=== PATIENT | male | born 1965 | race Caucasian/White ===

== ENCOUNTER → 2016-09-05 | Outpatient (CLI) | payer BC ==
[2016-09-05 09:15] LABS: Basophils # (A) 0.1 k/uL (0-0.2); Basophils % (A) 1 %; CH 32.1; CHCM 33.4; Eosinophils # (A) 0.1 k/uL (0-0.7); Eosinophils % (A) 2 %; HCT 47.1 % (39.0-53.0); HDW 2.37; Luc % (Auto) 2; Lymphocytes # (A) 0.6 k/uL (1.0-4.8); Lymphocytes % (A) 15 %; MCH 30.8 pg (25.0-35.0); MCHC 31.8 g/dL (31.0-37.0); MCV 96.6 fL (80.0-100.0); Mean Platelet Volume 8.3; Monocytes # (A) 0.3 k/uL (0-1.0); Monocytes % (A) 7 %; Neutrophils # (A) 3.1 k/uL (1.3-7.7); Neutrophils % (A) 73 %; RBC 4.87 m/uL (4.30-5.90); RDW 12.1 % (11.5-15.5); WBC 4.3 k/uL (3.8-10.6); WBC (Perox) 4.62
[2016-09-05 11:12] LABS: Hemoglobin A1C 6.7 % (4.2-6.1)
[2016-09-05 11:24] LABS: ALT 40 U/L (21-72); AST 21 U/L (17-59); Anion Gap 11 mmol/L; Blood Urea Nitrogen 18 mg/dL (9-20); Calcium 9.8 mg/dL (8.4-10.2); Carbon Dioxide 30 mmol/L (22-30); Chloride 100 mmol/L (98-107); Glucose 211 mg/dL (74-99); Non-African American GFR(MDRD) >60 (>60 ml/min/1.73 sqM); Potassium 4.7 mmol/L (3.5-5.1); Sodium 141 mmol/L (137-145)
[2016-09-05 11:51] LABS: Prostate Specific Antigen 0.41 ng/mL (0.00-4.00)
== END | disposition home or self-care (01) ==
LOC: LABWHC1 07:00
PROVIDERS: ATTEND Family Medicine
DX: E11.9 Type 2 diabetes mellitus without complications (principal)
CPT/HCPCS: 36415; 80048; 83036; 84153; 84450; 84460; 85025

== ENCOUNTER → 2017-08-16 | Outpatient (CLI) | payer BC ==
[2017-08-16 07:44] LABS: HCT 44.9 % (39.0-53.0); HGB 14.8 gm/dL (13.0-17.5); MCH 31.2 pg (25.0-35.0); MCV 94.6 fL (80.0-100.0); Mean Platelet Volume 8.2; Platelet Count 198 k/uL (150-450); RBC 4.75 m/uL (4.30-5.90); WBC 5.2 k/uL (3.8-10.6)
[2017-08-16 10:03] LABS: ALT 105 U/L (21-72); AST 43 U/L (17-59); Albumin 4.3 g/dL (3.5-5.0); Alkaline Phosphatase 102 U/L (38-126); Anion Gap 10 mmol/L; Blood Urea Nitrogen 20 mg/dL (9-20); Calcium 9.8 mg/dL (8.4-10.2); Carbon Dioxide 29 mmol/L (22-30); Chloride 100 mmol/L (98-107); Cholesterol 154 mg/dL (<200); Glucose 176 mg/dL (74-99); HDL Cholesterol 49 mg/dL (40-60); LDL Cholesterol,Calculated 73 mg/dL (0-99); Potassium 4.6 mmol/L (3.5-5.1); Sodium 139 mmol/L (137-145); Total Bilirubin 0.7 mg/dL (0.2-1.3); Triglycerides 161 mg/dL (<150)
[2017-08-16 10:32] LABS: Prostate Specific Antigen 0.43 ng/mL (0.00-4.00)
[2017-08-16 19:41] LABS: Hemoglobin A1C 7.3 % (4.0-6.0)
== END | disposition home or self-care (01) ==
LOC: LABWHC1 07:03
PROVIDERS: ATTEND Family Medicine
DX: Z00.00 Encounter for general adult medical examination without abnormal findings (principal); E11.9 Type 2 diabetes mellitus without complications
CPT/HCPCS: 36415; 80053; 80061; 82043; 82570; 83036; 84153; 85027; 86803

== ENCOUNTER → 2017-08-28 | Outpatient (CLI) | payer BC ==
[2017-08-28 08:17] LABS: ALT 46 U/L (21-72); AST 27 U/L (17-59)
== END | disposition home or self-care (01) ==
LOC: LABWHC1 07:10
PROVIDERS: ATTEND Family Medicine
DX: R89.9 Unspecified abnormal finding in specimens from other organs, systems and tissues (principal)
CPT/HCPCS: 36415; 84450; 84460

== ENCOUNTER → 2018-03-22 | Outpatient (CLI) | payer BC ==
[2018-03-22 08:48] LABS: ALT 40 U/L (21-72); AST 25 U/L (17-59); Anion Gap 11 mmol/L; Blood Urea Nitrogen 17 mg/dL (9-20); Calcium 9.5 mg/dL (8.4-10.2); Carbon Dioxide 25 mmol/L (22-30); Chloride 102 mmol/L (98-107); Glucose 199 mg/dL (74-99); Potassium 4.7 mmol/L (3.5-5.1); Sodium 138 mmol/L (137-145)
[2018-03-22 18:09] LABS: Hemoglobin A1C 6.9 % (4.0-6.0)
== END | disposition home or self-care (01) ==
LOC: LABWHC1 08:11
PROVIDERS: ATTEND Family Medicine
DX: E78.2 Mixed hyperlipidemia (principal); E11.65 Type 2 diabetes mellitus with hyperglycemia
CPT/HCPCS: 36415; 80048; 83036; 84450; 84460

== ENCOUNTER → 2019-05-11 | Outpatient (CLI) | payer BC ==
[2019-05-11 10:29] LABS: Basophils # (A) 0.1 k/uL (0-0.2); Basophils % (A) 1 %; Eosinophils # (A) 0.1 k/uL (0-0.7); Eosinophils % (A) 2 %; HCT 44.8 % (39.0-53.0); HGB 15.2 gm/dL (13.0-17.5); Lymphocytes # (A) 0.7 k/uL (1.0-4.8); Lymphocytes % (A) 14 %; MCH 32.7 pg (25.0-35.0); MCV 96.1 fL (80.0-100.0); Mean Platelet Volume 7.4; Monocytes # (A) 0.4 k/uL (0-1.0); Monocytes % (A) 7 %; Neutrophils % (A) 73 %; Platelet Count 234 k/uL (150-450); RBC 4.66 m/uL (4.30-5.90); WBC 5.4 k/uL (3.8-10.6)
[2019-05-11 16:53] LABS: African American GFR (CKD) 111.8 (60.0-200.0); Anion Gap 7.3 mmol/L (4.00-12.00); BUN/Creat Ratio 17.78 Ratio (12.00-20.00); Calcium 9.5 mg/dL (8.7-10.3); Carbon Dioxide 28.7 mmol/L (21.6-31.8); Potassium 4.6 mmol/L (3.5-5.5)
[2019-05-11 17:47] LABS: Hemoglobin A1C 7.3 % (4.0-6.0)
== END | disposition home or self-care (01) ==
LOC: LABWHC1 08:43
PROVIDERS: ATTEND Family Medicine
DX: E78.5 Hyperlipidemia, unspecified (principal); E11.9 Type 2 diabetes mellitus without complications; R80.9 Proteinuria, unspecified
CPT/HCPCS: 36415; 80048; 82043; 82570; 83036; 84450; 84460; 85025

== ENCOUNTER → 2019-06-10 | Outpatient (CLI) | payer BC ==
[2019-06-10 12:23] LABS: Albumin 4.4 g/dL (3.80-4.90); Albumin/Globulin Ratio 2.32 (1.60-3.17); Bilirubin, Conjugated 0.2 mg/dL (0.20-0.40); Bilirubin,Unconjugated 0.4 mg/dL; Globulin 1.9 g/dL (1.6-3.3); Total Bilirubin 0.6 mg/dL (0.3-1.2); Total Protein 6.3 g/dL (6.2-8.2)
== END | disposition home or self-care (01) ==
LOC: LABWHC1 07:09
PROVIDERS: ATTEND Family Medicine
DX: R94.5 Abnormal results of liver function studies (principal)
CPT/HCPCS: 36415; 80076; 82977

== ENCOUNTER → 2019-08-14 | Outpatient (CLI) | payer BC ==
[2019-08-14 11:14] LABS: Albumin 4.7 g/dL (3.80-4.90); Albumin/Globulin Ratio 2.35 (1.60-3.17); Bilirubin, Conjugated 0.2 mg/dL (0.20-0.40); Bilirubin,Unconjugated 0.4 mg/dL; Chol/HDL Ratio 4.48; LDL Cholesterol,Calculated 133.6 mg/dL (0.0-131.0); Total Bilirubin 0.6 mg/dL (0.3-1.2); Total Protein 6.7 g/dL (6.2-8.2); VLDL Calculation 19.4 mg/dL (5.00-40.00)
[2019-08-14 15:39] LABS: Hemoglobin A1C 6.6 % (4.0-6.0)
== END | disposition home or self-care (01) ==
LOC: LABWHC1 07:04
PROVIDERS: ATTEND Family Medicine
DX: R94.5 Abnormal results of liver function studies (principal); E11.9 Type 2 diabetes mellitus without complications; E78.5 Hyperlipidemia, unspecified; Z12.5 Encounter for screening for malignant neoplasm of prostate
CPT/HCPCS: 36415; 80061; 80076; 82977; 83036

== ENCOUNTER 2019-09-02 19:00 | Emergency (ER) | payer BC ==
[2019-09-02 19:07] VITALS: BP 189/96; PULSE 78; RESP 18; TEMP 98.6
--- NOTE | 2019-09-02 19:32 | ED ---
Head Injury HPI - General Chief complaint: Head Injury Stated complaint: syncope/chin lac Time Seen by Provider: 09/02/19 19:08 Source: patient Mode of arrival: ambulatory Limitations: no limitations - History of Present Illness Initial comments: Patient is a 53-year-old male presenting to emergency Department with a chief complaint of a head injury. 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 Patient states he woke up on the ground and then walked back to the house. Please states she checked his blood sugar which was normal. States she immediately gave him 2x81 mg of aspirin. States initially he was confused but is gradually improved. States currently patient is at his baseline. Patient denies any blood thinners. Does report a headache on the right side of his head and face. Patient does report a small abrasion on the right side of his chin. Denies any blurry vision, lightheadedness, dizziness, one-sided weakness or paresthesias. Denies any chest pain shortness of breath back pain abdominal pain or extremity pain. - Related Data Home Medications Medication Instructions Recorded Confirmed Cholesterol Med 1 tab PO DAILY 05/02/17 05/03/17 metFORMIN HCL [Glucophage] 500 mg PO BID 05/02/17 05/03/17 Previous Rx's Medication Instructions Recorded Omeprazole [PriLOSEC] 20 mg PO AC-BRKFST #90 cap 05/03/17 Allergies/Adverse reactions: Allergies Allergy/AdvReac Type Severity Reaction Status Date / Time No Known Allergies Allergy Verified 05/11/19 09:52 Review of Systems ROS Statement: Those systems with pertinent positive or pertinent negative responses have been documented in the HPI. ROS Other: All systems not noted in ROS Statement are negative. Past Medical History Past Medical History: Diabetes Mellitus History of Any Multi-Drug Resistant Organisms: None Reported Past Surgical History: No Surgical Hx Reported Past Anesthesia/Blood Transfusion Reactions: No Reported Reaction Past Psychological History: No Psychological Hx Reported Smoking Status: Never smoker Past Alcohol Use History: Occasional Past Drug Use History: None Reported - Past Family History Mother Family Medical History: Cancer General Exam Limitations: no limitations General appearance: alert, in no apparent distress Head exam: Present: atraumatic (Small abrasion on the right side of chin.), normocephalic, normal inspection. Absent: other (Negative Dawkins sign, negative periorbital ecchymosis, negative hemotympanum.) Eye exam: Present: normal appearance, PERRL, EOMI. Absent: conjunctival injection Pupils: Present: normal accommodation ENT exam: Present: normal exam, normal oropharynx (No oral trauma), mucous membranes moist, TM's normal bilaterally, normal external ear exam Neck exam: Present: normal inspection, full ROM Respiratory exam: Present: normal lung sounds bilaterally. Absent: respiratory distress, wheezes, chest wall tenderness Cardiovascular Exam: Present: regular rate, normal rhythm, normal heart sounds GI/Abdominal exam: Present: soft. Absent: distended, tenderness, guarding Extremities exam: Present: normal inspection, full ROM, normal capillary refill, other (+2 ulnar and radial pulses bilaterally. +2 dorsalis pedis and posterior tibialis bilaterally.). Absent: tenderness, pedal edema, joint swelling Back exam: Present: normal inspection, full ROM. Absent: tenderness Neurological exam: Present: alert, oriented X3, CN II-XII intact, normal gait Psychiatric exam: Present: normal affect, normal mood Skin exam: Present: warm, dry, intact, normal color Course Vital Signs 09/02/19 19:02 Temperature 98.6 F Pulse Rate 78 Respiratory 18 Rate Blood Pressure 189/96 O2 Sat by Pulse 98 Oximetry Medical Decision Making - Medical Decision Making Patient is a 53-year-old male presenting to the emergency department with a chief complaint of a head injury. Patient had a beam fall on his head, particularly on the right side of his face causing loss of consciousness. The incident was not witnessed. Patient states he was unconscious for about 10 minutes maximum. Patient more [facility] where his obtained his blood sugar was within normal limits. Patient did have some initial confusion which gradually resolved. On initial evaluation, patient have a c-collar. patient did appear to have a mild abrasion on the right side of the chin. Patient did not have any other signs of obvious signs of trauma on the head. He did report some tenderness to palpation on the right frontotemporal region all the way down to the angle of the mandible. Patient is not on blood thinners. CT of head and neck is unremarkable. C-collar was cleared. Patient neurovascularly intact. Patient is able to ambulate without any difficulties. The and son state the patient is acting at his baseline currently. I suspect the patient suffered a concussion. Patient advised to have physical and mental rest for next few days. Patient does have any complaints at this time. Return parameters were thoroughly discussed the patient was under setting agreeable. Case discussed with physician. Disposition Clinical Impression: Head injury due to trauma, Concussion with loss of consciousness Disposition: HOME SELF-CARE Condition: Stable Instructions (If sedation given, give patient instructions): Concussion (ED) Additional Instructions: Alternate between Tylenol and Motrin for pain control. Return to emergency department if symptoms worsen. Follow-up with primary care. Is patient prescribed a controlled substance at d/c from ED?: No Referrals: Ruel Brambila DO [Primary Care Provider] - 1-2 days Time of Disposition: 20:28
--- NOTE | 2019-09-02 19:48 | CT ---
EXAMINATION TYPE: CT brain cspine wo con DATE OF EXAM: 09/02/2019 COMPARISON: None HISTORY: Syncope. Head injury. Neck pain CT DLP: 1727 mGycm Automated exposure control for dose reduction was used. Ventricles have normal size. There is no mass effect nor midline shift. There is no sign of intracran ial hemorrhage. The calvarium is intact. There is no evidence of cerebral edema. Sella turcica appear s normal. Cervical vertebra have normal alignment. Disc spaces are normal. Posterior elements are intact. Skull base is intact. There is no evidence for fracture. There is normal spondylotic changes and spur form ation in the mid and lower cervical spine. IMPRESSION: Minor degenerative changes in the cervical spine. No fracture. Negative CT scan of the brain. Small mucus retention cyst noted in the maxillary sinuses.
== END 2019-09-02 20:37 | disposition home or self-care (01) ==
LOC: EC 19:00
DX: S06.0X1A Concussion with loss of consciousness of 30 minutes or less, initial encounter (principal); S00.81XA Abrasion of other part of head, initial encounter; E11.9 Type 2 diabetes mellitus without complications; Z79.84 Long term (current) use of oral hypoglycemic drugs; Z79.899 Other long term (current) drug therapy; W20.8XXA Other cause of strike by thrown, projected or falling object, initial encounter; Y93.89 Activity, other specified
CPT/HCPCS: 70450; 72125; 99284

== ENCOUNTER → 2019-12-21 | Outpatient (CLI) | payer BC ==
[2019-12-21 08:36] LABS: Appearance,Urine Clear (Clear); Bilirubin,Urine Negative (Negative); Color,Urine Yellow; Glucose,Urine (UA) Negative (Negative); Ketones,Urine Negative (Negative); Protein,Urine Negative (Negative)
[2019-12-21 08:37] LABS: Blood,Urine Negative (Negative); Leukocyte Esterase,Urine Negative (Negative); Nitrite,Urine Negative (Negative); Urobilinogen,Urine <2.0 mg/dL (<2.0)
[2019-12-21 11:54] LABS: Chol/HDL Ratio 4.21; LDL Cholesterol,Calculated 108.8 mg/dL (0.0-131.0); VLDL Calculation 26.2 mg/dL (5.00-40.00)
[2019-12-21 13:35] LABS: Hemoglobin A1C 6.6 % (4.0-6.0)
== END | disposition home or self-care (01) ==
LOC: LABWHC1 07:38
PROVIDERS: ATTEND Family Medicine
DX: Z00.00 Encounter for general adult medical examination without abnormal findings (principal); E78.5 Hyperlipidemia, unspecified; R74.8 Abnormal levels of other serum enzymes
CPT/HCPCS: 36415; 80061; 81003; 82977; 83036; 84153

== ENCOUNTER → 2020-01-18 | Outpatient (CLI) | payer BC ==
--- NOTE | 2020-01-18 11:53 | US ---
EXAMINATION TYPE: US abdomen limited DATE OF EXAM: 01/18/2020 COMPARISON: NONE CLINICAL HISTORY: R94.5 ABN LIVER FUNCTION STUDIES. Abnormal labs. No pain. EXAM MEASUREMENTS: Liver Length: 17.0 cm Gallbladder Wall: 0.3 cm CBD: 0.4 cm Right Kidney: 11.6 x 5.9 x 6.1 cm Pancreas: Tail obscured by overlying bowel gas Liver: wnl Gallbladder: wnl Evidence for sonographic Kate's sign: neg CBD: wnl Right Kidney: Two cystic appearing lesions visualized. 1- lateral mid anterior with septation = 2.0 x 2.0 x 2.7 cm. 2- lower pole lateral = 1.9 x 1.8 x 2.4 cm. IMPRESSION: Exam somewhat limited. Cystic lesions right kidney appear to show septation in the latera l lesion, follow-up to assess for stability
== END | disposition home or self-care (01) ==
LOC: RADUSWWP 07:31
PROVIDERS: ATTEND Family Medicine
DX: R94.5 Abnormal results of liver function studies (principal)
CPT/HCPCS: 76705

== ENCOUNTER → 2020-06-23 | Outpatient (CLI) | payer BC ==
[2020-06-23 10:50] LABS: African American GFR (CKD) 97.8 (60.0-200.0); Anion Gap 4.8 mmol/L (4.00-12.00); Calcium 9.3 mg/dL (8.7-10.3); Carbon Dioxide 29.2 mmol/L (21.6-31.8); Non-African American GFR(CKD) 84.4 (60.0-200.0); Potassium 4.3 mmol/L (3.5-5.5)
== END | disposition home or self-care (01) ==
LOC: LABWHC1 07:50
PROVIDERS: ATTEND Family Medicine
DX: E11.9 Type 2 diabetes mellitus without complications (principal); R94.5 Abnormal results of liver function studies
CPT/HCPCS: 36415; 80048; 84450; 84460

== ENCOUNTER → 2020-07-18 | Outpatient (CLI) | payer BC ==
[2020-07-18 07:41] LABS: HCT 43.4 % (39.0-53.0); HGB 14.7 gm/dL (13.0-17.5); MCH 32.3 pg (25.0-35.0); Mean Platelet Volume 8.8; Platelet Count 208 k/uL (150-450); RBC 4.56 m/uL (4.30-5.90); RDW 11.9 % (11.5-15.5); WBC 4.2 k/uL (3.8-10.6)
[2020-07-18 08:09] LABS: Appearance,Urine Clear (Clear); Bilirubin,Urine Negative (Negative); Blood,Urine Negative (Negative); Color,Urine Yellow; Glucose,Urine (UA) Negative (Negative); Ketones,Urine Negative (Negative); Leukocyte Esterase,Urine Negative (Negative); Nitrite,Urine Negative (Negative); PH, Urine 5.5 (5.0-8.0); Protein,Urine Negative (Negative); Specific Gravity,Urine 1.024 (1.001-1.035); Urobilinogen,Urine <2.0 mg/dL (<2.0)
[2020-07-18 11:17] LABS: African American GFR (CKD) 87.1 (60.0-200.0); Albumin 4.6 g/dL (3.80-4.90); Albumin/Globulin Ratio 2.3 (1.60-3.17); Calcium 9.4 mg/dL (8.7-10.3); Chol/HDL Ratio 3.91; Non-African American GFR(CKD) 75.2 (60.0-200.0); Potassium 4.4 mmol/L (3.5-5.5); Prostate Specific Antigen 0.4 ng/mL (0.0-3.5); Total Bilirubin 0.5 mg/dL (0.3-1.2); Total Protein 6.6 g/dL (6.2-8.2)
[2020-07-18 12:52] LABS: Microalbumin Creatinine Ratio <30 mg/g Creat (0-30)
[2020-07-18 14:45] LABS: Hemoglobin A1C 6.8 % (4.0-6.0)
== END | disposition home or self-care (01) ==
LOC: LABWHC1 07:19
PROVIDERS: ATTEND Family Medicine
DX: Z00.00 Encounter for general adult medical examination without abnormal findings (principal); E11.9 Type 2 diabetes mellitus without complications
CPT/HCPCS: 36415; 80053; 80061; 81003; 82043; 82306; 82570; 82977; 83036; 84153; 85027

== ENCOUNTER 2020-11-18 10:57 | Emergency (ER) | payer BC ==
[2020-11-18 11:03] VITALS: RESP 18
[2020-11-18] MEDS ORDERED: SODIUM CHLORIDE 0.9% 1,000 ML IV STA (11:42)
[2020-11-18] MEDS ORDERED: KETOROLAC 15 MG/ML 1 ML VIAL IVP STA ×2 (11:42→12:09)
[2020-11-18] MEDS ORDERED: ONDANSETRON 4 MG/2 ML VIAL IVP STA (11:42)
[2020-11-18 12:12] LABS: Basophils # (A) 0.1 k/uL (0-0.2); Basophils % (A) 1 %; Eosinophils # (A) 0.1 k/uL (0-0.7); Eosinophils % (A) 1 %; HCT 44.2 % (39.0-53.0); HGB 15.3 gm/dL (13.0-17.5); Lymphocytes # (A) 0.6 k/uL (1.0-4.8); Lymphocytes % (A) 6 %; MCH 32.8 pg (25.0-35.0); MCHC 34.6 g/dL (31.0-37.0); MCV 94.9 fL (80.0-100.0); Mean Platelet Volume 8.8; Monocytes # (A) 0.5 k/uL (0-1.0); Monocytes % (A) 5 %; Neutrophils # (A) 8.3 k/uL (1.3-7.7); Neutrophils % (A) 86 %; Platelet Count 216 k/uL (150-450); RBC 4.65 m/uL (4.30-5.90); RDW 11.9 % (11.5-15.5); WBC 9.7 k/uL (3.8-10.6)
[2020-11-18 12:18] LABS: ALT 25 U/L (4-49); AST 24 U/L (17-59); African American GFR (CKD) >90 (>60 ml/min/1.73 sqM); Albumin 4.6 g/dL (3.5-5.0); Alkaline Phosphatase 76 U/L (38-126); Anion Gap 8 mmol/L; Blood Urea Nitrogen 16 mg/dL (9-20); Calcium 9.6 mg/dL (8.4-10.2); Carbon Dioxide 30 mmol/L (22-30); Chloride 103 mmol/L (98-107); Glucose 190 mg/dL (74-99); Non-African American GFR(CKD) 80 (>60 ml/min/1.73 sqM); Potassium 4.4 mmol/L (3.5-5.1); Sodium 141 mmol/L (137-145); Total Bilirubin 0.6 mg/dL (0.2-1.3); Total Protein 7.2 g/dL (6.3-8.2)
[2020-11-18 12:33] LABS: Appearance,Urine Clear (Clear); Bilirubin,Urine Negative (Negative); Blood,Urine Moderate (Negative); Color,Urine Yellow; Glucose,Urine (UA) 1+ (Negative); Ketones,Urine Negative (Negative); Leukocyte Esterase,Urine Negative (Negative); Mucus,Urine Rare /hpf; Nitrite,Urine Negative (Negative); Protein,Urine Trace (Negative); RBC,Urine 10 /hpf (0-5); Specific Gravity,Urine 1.021 (1.001-1.035); Urobilinogen,Urine <2.0 mg/dL (<2.0); WBC,Urine 1 /hpf (0-5)
--- NOTE | 2020-11-18 12:35 | ED ---
General Adult HPI - General Chief complaint: Back Pain/Injury Stated complaint: Back pain/abd pain Time Seen by Provider: 11/18/20 11:30 Source: patient Mode of arrival: ambulatory Limitations: no limitations - History of Present Illness Initial comments: Patient is a 55-year-old male presenting to the emergency Department with complaints of left lower back pain with radiation to the left lower abdominal as well as left testicle that started yesterday. Patient states he noticed a little bit of discomfort yesterday but states today the pain has increased. He did go to a clinic today, they mentioned he had blood in his urine and didn't order an ultrasound however patient states his pain has been increasing and he cannot wait until 1 PM for the ultrasound. He denies history of kidney stones, denies history of diverticulitis. He states that he is nauseous when the pain increases but no vomiting. No fevers or chills, no chest pain or shortness of breath. He admits to a small umbilical hernia, no other abdominal surgeries. He has no further complaints. Upon arrival to the ER, he is slightly hypertensive otherwise vitals are normal. - Related Data Home Medications Medication Instructions Recorded Confirmed metFORMIN HCL [Glucophage] 500 mg PO BID 05/02/17 11/18/20 Previous Rx's Medication Instructions Recorded HYDROcodone/APAP 5-325MG [[place] 1 tab PO Q6HR PRN #8 tab 11/18/20 5-325] Ketorolac [Toradol] 10 mg PO Q8HR #10 tab 11/18/20 Ondansetron Odt [Zofran Odt] 4 mg PO Q8HR PRN #10 tab 11/18/20 Tamsulosin [Flomax] 0.4 mg PO DAILY #7 cap 11/18/20 Allergies Allergy/AdvReac Type Severity Reaction Status Date / Time No Known Allergies Allergy Verified 11/18/20 13:04 Review of Systems ROS Statement: Those systems with pertinent positive or pertinent negative responses have been documented in the HPI. ROS Other: All systems not noted in ROS Statement are negative. Past Medical History Past Medical History: Diabetes Mellitus History of Any Multi-Drug Resistant Organisms: None Reported Past Surgical History: No Surgical Hx Reported Past Anesthesia/Blood Transfusion Reactions: No Reported Reaction Past Psychological History: No Psychological Hx Reported Smoking Status: Never smoker Past Alcohol Use History: Occasional Past Drug Use History: None Reported - Past Family History Mother Family Medical History: Cancer General Exam - General Exam Comments Initial Comments: GENERAL: Patient is well-developed and well-nourished. Patient is nontoxic and in mild distress. HEAD: Atraumatic, normocephalic. EYES: Pupils equal round and reactive to light, extraocular movements intact, sclera anicteric, conjunctiva are normal. Eyelids were unremarkable. ENT: TMs normal, nares patent, oropharynx clear without exudates. Moist mucous membranes. NECK: Normal range of motion, supple without lymphadenopathy or JVD. LUNGS: Unlabored respirations. Breath sounds clear to auscultation bilaterally and equal. No wheezes rales or rhonchi. HEART: Regular rate and rhythm without murmurs, rubs or gallops. ABDOMEN: Soft, tender in the left side of the abdomen, left lower quadrant,, normoactive bowel sounds. No guarding, no rebound. No masses appreciated. : Deferred MUSCULOSKELETAL: Normal extremities with adequate strength and normal range of motion, no pitting or edema. No clubbing or cyanosis. NEUROLOGICAL: Patient is alert and oriented x 3. Motor and sensory are also intact. Cranial nerves II through XII grossly intact. Symmetrical smile. Normal speech, normal gait. PSYCH: Normal mood, normal affect. SKIN: Warm, Dry, normal turgor, no rashes or lesions noted. Limitations: no limitations Course Vital Signs 11/18/20 11:01 Temperature 98.0 F Pulse Rate 83 Respiratory 18 Rate Blood Pressure 185/91 O2 Sat by Pulse 99 Oximetry Medical Decision Making - Medical Decision Making Patient is a 55-year-old male presenting with left flank pain with radiation to left side of the abdomen that started yesterday. His vitals are stable, no fevers. History of diverticulitis or kidney stones. Labs are normal, normal white count, normal kidney function, glucose is slightly elevated at 190. Urine shows moderate amount of blood, no bacteria. CT of the abdomen shows a 5.6 mm calculus in the mid left ureter with mild to moderate left-sided hydronephrosis. Mild left renal edema. Patient did receive fluids, Zofran and Toradol, he reports improvement in his symptoms, his pain is currently 1/10. I discussed these findings with the patient. I will give him follow-up to urology. I will also send him home with FloCorey boldenan and some Toradol. Patient is concerned for how bad the pain was yesterday, I will give him a few tablets of [place] as well. Patient is stable for discharge, he is in agreement with this plan of care. Return parameters were discussed with them and they verbalized understanding. Case discussed with Dr. Carlson. - Lab Data Result diagrams: 11/18/20 11:53 11/18/20 11:53 Lab Results 11/18/20 11/18/20 11/18/20 Range/Units 11:53 11:53 11:53 WBC 9.7 (3.8-10.6) k/uL RBC 4.65 (4.30-5.90) m/uL Hgb 15.3 (13.0-17.5) gm/dL Hct 44.2 (39.0-53.0) % MCV 94.9 (80.0-100.0) fL MCH 32.8 (25.0-35.0) pg MCHC 34.6 (31.0-37.0) g/dL RDW 11.9 (11.5-15.5) % Plt Count 216 (150-450) k/uL MPV 8.8 Neutrophils % 86 % Lymphocytes % 6 % Monocytes % 5 % Eosinophils % 1 % Basophils % 1 % Neutrophils # 8.3 H (1.3-7.7) k/uL Lymphocytes # 0.6 L (1.0-4.8) k/uL Monocytes # 0.5 (0-1.0) k/uL Eosinophils # 0.1 (0-0.7) k/uL Basophils # 0.1 (0-0.2) k/uL Sodium 141 (137-145) mmol/L Potassium 4.4 (3.5-5.1) mmol/L Chloride 103 (98-107) mmol/L Carbon Dioxide 30 (22-30) mmol/L Anion Gap 8 mmol/L BUN 16 (9-20) mg/dL Creatinine 1.05 (0.66-1.25) mg/dL Est GFR (CKD-EPI)AfAm >90 (>60 ml/min/1.73 sqM) Est GFR (CKD-EPI)NonAf 80 (>60 ml/min/1.73 sqM) Glucose 190 H (74-99) mg/dL Calcium 9.6 (8.4-10.2) mg/dL Total Bilirubin 0.6 (0.2-1.3) mg/dL AST 24 (17-59) U/L ALT 25 (4-49) U/L Alkaline Phosphatase 76 (38-126) U/L Total Protein 7.2 (6.3-8.2) g/dL Albumin 4.6 (3.5-5.0) g/dL Urine Color Yellow Urine Appearance Clear (Clear) Urine pH 5.0 (5.0-8.0) Ur Specific [place] 1.021 (1.001-1.035) Urine Protein Trace H (Negative) Urine Glucose (UA) 1+ H (Negative) Urine Ketones Negative (Negative) Urine Blood Moderate H (Negative) Urine Nitrite Negative (Negative) Urine Bilirubin Negative (Negative) Urine Urobilinogen <2.0 (<2.0) mg/dL Ur Leukocyte Esterase Negative (Negative) Urine RBC 10 H (0-5) /hpf Urine WBC 1 (0-5) /hpf Urine Mucus Rare H (None) /hpf Disposition Clinical Impression: Left ureteral calculus, Hydronephrosis, left Disposition: HOME SELF-CARE Condition: Stable Instructions (If sedation given, give patient instructions): Kidney Stones (ED) Additional Instructions: Please return to the Emergency Department if symptoms worsen or any other concerns. Recommend taking medications as prescribed for your symptoms. Follow-up with urology as discussed. Prescriptions: Tamsulosin [Flomax] 0.4 mg PO DAILY #7 cap HYDROcodone/APAP 5-325MG [[place] 5-325] 1 tab PO Q6HR PRN #8 tab PRN Reason: Pain Ketorolac [Toradol] 10 mg PO Q8HR #10 tab Ondansetron Odt [Zofran Odt] 4 mg PO Q8HR PRN #10 tab PRN Reason: Nausea Is patient prescribed a controlled substance at d/c from ED?: Yes When asked, does pt state using other controlled substances?: No If prescribed controlled substance>3 days was MAPS reviewed?: Prescribed <3 Days If opioid is for acute pain is fill amount 7 days or less?: Yes If Rx opioid, was Start Talking consent form obtained?: Yes Referrals: Ruel Brambila, [Primary Care Provider] - 1-2 days Kip Treadwell MD [STAFF PHYSICIAN] - 1-2 days Time of Disposition: 13:14
--- NOTE | 2020-11-18 12:37 | CT ---
EXAMINATION TYPE: CT abdomen pelvis wo con DATE OF EXAM: 11/18/2020 COMPARISON: None HISTORY: Left flank pain CT DLP: 704.7 mGycm Examination of the solid and hollow viscera is limited given the lack of contrast. FINDINGS: LUNG BASES: No evidence for nodule. No evidence for infiltrate. LIVER/GB: The gallbladder is unremarkable. No space-occupying hepatic lesion. PANCREAS: No pancreatic mass identified. No inflammatory process seen. SPLEEN: No evidence for splenomegaly. No intrasplenic lesions seen. ADRENALS: No adrenal nodules identified. No evidence for thickening. KIDNEYS: 5.6 mm calculus mid left ureter with mild to moderate left-sided hydronephrosis. Mild left r enal edema. Underlying infection is difficult to exclude. Hypoattenuating lesions lower pole right ki dney are nonspecific. BOWEL: Appendix has a normal appearance. No evidence of bowel obstruction. No inflammatory process. Lymph nodes: No evidence for adenopathy greater than 1 cm. Abdominal aorta: Atheromatous changes seen. No evidence for aneurysm. Genital organs: No significant abnormality. Other: No significant abnormality. IMPRESSION: 1. 5.6 mm calculus mid left ureter with mild to moderate left-sided hydronephrosis. Mild left renal edema. Underlying infection is difficult to exclude.
[2020-11-18 13:34] VITALS: BP 156/80; PULSE 77; TEMP 98.3
== END 2020-11-18 13:47 | disposition home or self-care (01) ==
LOC: EC 10:57
DX: N13.2 Hydronephrosis with renal and ureteral calculous obstruction (principal); E11.9 Type 2 diabetes mellitus without complications; K42.9 Umbilical hernia without obstruction or gangrene; Z79.1 Long term (current) use of non-steroidal anti-inflammatories (NSAID); Z79.84 Long term (current) use of oral hypoglycemic drugs; Z79.899 Other long term (current) drug therapy
CPT/HCPCS: 99284; 96374; 96376; 96375; 96361; 36415; 80053; 85025; 81001; 74176; J2405; J1885

== ENCOUNTER 2020-11-27 08:14 | Observation (INO) | payer BC ==
[2020-11-27] MEDS ORDERED: SODIUM CHLORIDE 0.9% 1,000 ML IV STA ×2 (08:32)
[2020-11-27] MEDS ORDERED: KETOROLAC 15 MG/ML 1 ML VIAL IVP STA (08:32)
--- NOTE | 2020-11-27 08:37 | ED ---
Male Urogenital HPI - General Chief complaint: Urogenital Stated complaint: kidney stones Time Seen by Provider: 11/27/20 08:15 Source: patient, RN notes reviewed Mode of arrival: ambulatory Limitations: no limitations - History of Present Illness Initial comments: Is a 55-year-old male who was diagnosed with a kidney stone this past week and states it's 5.6 mm in size who states he's had persistent pain since yesterday left flank gradient to his left testicle 9/10 severity sharp and achy in nature no overt fevers chills sweats nausea vomiting however. No hematuria. He does take medication try and expedite the expulsion of the expulsion of the kidney stone was instructed to come in here. No complaints of any MD Complaint: testicle pain, other - Related Data Home Medications Medication Instructions Recorded Confirmed metFORMIN HCL [Glucophage] 500 mg PO BID 05/02/17 11/27/20 Previous Rx's Medication Instructions Recorded Ketorolac [Toradol] 10 mg PO Q8HR #10 tab 11/18/20 Tamsulosin [Flomax] 0.4 mg PO DAILY #7 cap 11/18/20 Allergies Allergy/AdvReac Type Severity Reaction Status Date / Time No Known Allergies Allergy Verified 11/27/20 10:33 Review of Systems ROS Statement: Those systems with pertinent positive or pertinent negative responses have been documented in the HPI. ROS Other: All systems not noted in ROS Statement are negative. Past Medical History Past Medical History: Diabetes Mellitus Additional Past Medical History / Comment(s): kidney stones History of Any Multi-Drug Resistant Organisms: None Reported Past Surgical History: No Surgical Hx Reported Additional Past Surgical History / Comment(s): vasectomy Past Anesthesia/Blood Transfusion Reactions: No Reported Reaction Past Psychological History: No Psychological Hx Reported Smoking Status: Never smoker Past Alcohol Use History: None Reported Past Drug Use History: None Reported - Past Family History Mother Family Medical History: Cancer General Exam - General Exam Comments Initial Comments: This is a well-developed well-nourished awake alert oriented times 3 male Limitations: no limitations General appearance: alert, anxious Head exam: Present: atraumatic, normocephalic, normal inspection Eye exam: Present: normal appearance, PERRL, EOMI. Absent: scleral icterus, conjunctival injection, periorbital swelling ENT exam: Present: normal exam, mucous membranes moist Neck exam: Present: normal inspection. Absent: tenderness, meningismus, lymphadenopathy Respiratory exam: Present: normal lung sounds bilaterally. Absent: respiratory distress, wheezes, rales, rhonchi, stridor Cardiovascular Exam: Present: regular rate, normal rhythm, normal heart sounds. Absent: systolic murmur, diastolic murmur, rubs, gallop, clicks GI/Abdominal exam: Present: soft, tenderness (3 minimal discomfort to palpation over left lower quadrant no guarding or rebound), normal bowel sounds. Absent: distended, guarding, rebound, rigid exam: Present: normal inspection Extremities exam: Present: normal inspection, full ROM, normal capillary refill. Absent: tenderness, pedal edema, joint swelling, calf tenderness Back exam: Present: normal inspection Neurological exam: Present: alert, oriented X3, CN II-XII intact Psychiatric exam: Present: normal affect, normal mood Skin exam: Present: warm, dry, intact, normal color. Absent: rash Course Vital Signs 11/27/20 11/27/20 11/27/20 08:15 09:15 10:20 Temperature 97.9 F Pulse Rate 77 69 70 Respiratory 18 18 20 Rate Blood Pressure 176/89 161/95 152/98 O2 Sat by Pulse 97 97 98 Oximetry Medical Decision Making - Medical Decision Making I did discuss findings with the patient and his as well as Dr. Cutler. He did come in to see the patient. Patient does have evidence of elevation in creatinine. Patient will be admitted for surgical stone retrieval - Lab Data Result diagrams: 11/27/20 08:37 11/27/20 08:37 Lab Results 11/27/20 11/27/20 11/27/20 Range/Units 08:37 08:37 08:37 WBC 6.0 (3.8-10.6) k/uL RBC 4.76 (4.30-5.90) m/uL Hgb 15.5 (13.0-17.5) gm/dL Hct 44.7 (39.0-53.0) % MCV 93.7 (80.0-100.0) fL MCH 32.5 (25.0-35.0) pg MCHC 34.6 (31.0-37.0) g/dL RDW 11.9 (11.5-15.5) % Plt Count 216 (150-450) k/uL MPV 7.9 Neutrophils % 76 % Lymphocytes % 13 % Monocytes % 8 % Eosinophils % 2 % Basophils % 1 % Neutrophils # 4.5 (1.3-7.7) k/uL Lymphocytes # 0.8 L (1.0-4.8) k/uL Monocytes # 0.5 (0-1.0) k/uL Eosinophils # 0.1 (0-0.7) k/uL Basophils # 0.1 (0-0.2) k/uL Sodium 137 (137-145) mmol/L Potassium 4.9 (3.5-5.1) mmol/L Chloride 104 (98-107) mmol/L Carbon Dioxide 26 (22-30) mmol/L Anion Gap 7 mmol/L BUN 30 H (9-20) mg/dL Creatinine 1.69 H (0.66-1.25) mg/dL Est GFR (CKD-EPI)AfAm 52 (>60 ml/min/1.73 sqM) Est GFR (CKD-EPI)NonAf 45 (>60 ml/min/1.73 sqM) Glucose 152 H (74-99) mg/dL Calcium 9.5 (8.4-10.2) mg/dL Total Bilirubin 0.7 (0.2-1.3) mg/dL AST 23 (17-59) U/L ALT 37 (4-49) U/L Alkaline Phosphatase 141 H (38-126) U/L Total Protein 7.2 (6.3-8.2) g/dL Albumin 4.5 (3.5-5.0) g/dL Lipase 146 (23-300) U/L Urine Color Light Yellow Urine Appearance Clear (Clear) Urine pH 5.5 (5.0-8.0) Ur Specific [place] 1.012 (1.001-1.035) Urine Protein Negative (Negative) Urine Glucose (UA) Negative (Negative) Urine Ketones Negative (Negative) Urine Blood Negative (Negative) Urine Nitrite Negative (Negative) Urine Bilirubin Negative (Negative) Urine Urobilinogen <2.0 (<2.0) mg/dL Ur Leukocyte Esterase Negative (Negative) - Radiology Data Radiology results: report reviewed (Imaging reviewed evidence of a calculus in distal left ureter), image reviewed Disposition Clinical Impression: Intractable abdominal pain, Left renal stone, Renal insufficiency Disposition: ADMITTED IP TO THIS [facility] Condition: Fair Referrals: Ruel Brambila DO [Primary Care Provider] - 1-2 days
[2020-11-27 08:46] LABS: Basophils # (A) 0.1 k/uL (0-0.2); Basophils % (A) 1 %; Eosinophils # (A) 0.1 k/uL (0-0.7); Eosinophils % (A) 2 %; HCT 44.7 % (39.0-53.0); HGB 15.5 gm/dL (13.0-17.5); Lymphocytes # (A) 0.8 k/uL (1.0-4.8); Lymphocytes % (A) 13 %; MCH 32.5 pg (25.0-35.0); MCHC 34.6 g/dL (31.0-37.0); MCV 93.7 fL (80.0-100.0); Mean Platelet Volume 7.9; Monocytes # (A) 0.5 k/uL (0-1.0); Monocytes % (A) 8 %; Neutrophils # (A) 4.5 k/uL (1.3-7.7); Neutrophils % (A) 76 %; Platelet Count 216 k/uL (150-450); RBC 4.76 m/uL (4.30-5.90); RDW 11.9 % (11.5-15.5)
[2020-11-27 08:48] LABS: Appearance,Urine Clear (Clear); Bilirubin,Urine Negative (Negative); Blood,Urine Negative (Negative); Color,Urine Light Yellow; Glucose,Urine (UA) Negative (Negative); Ketones,Urine Negative (Negative); Leukocyte Esterase,Urine Negative (Negative); Nitrite,Urine Negative (Negative); PH, Urine 5.5 (5.0-8.0); Protein,Urine Negative (Negative); Specific Gravity,Urine 1.012 (1.001-1.035); Urobilinogen,Urine <2.0 mg/dL (<2.0)
[2020-11-27 08:57] LABS: Albumin 4.5 g/dL (3.5-5.0); Calcium 9.5 mg/dL (8.4-10.2); Potassium 4.9 mmol/L (3.5-5.1); Total Bilirubin 0.7 mg/dL (0.2-1.3); Total Protein 7.2 g/dL (6.3-8.2)
--- NOTE | 2020-11-27 09:22 | XR ---
KUB HISTORY: Abdominal pain KUB and [address] scan 11/18/2020 Lung bases show some possible atelectatic change. There is a spinal curvature. No pneumoperitoneum or bowel obstruction. Multiple calcifications are present within the pelvis, there is a calcification t owards the left of midline measuring approximately 5 mm may represent interval transit to the patient 's ureteral calcification seen on prior CT. IMPRESSION: Findings likely represent distal left ureteral calculus
[2020-11-27] MEDS ORDERED: NALOXONE 0.4 MG/ML 1 ML VIAL IV PRN (11:29)
[2020-11-27] MEDS ORDERED: SODIUM CHLORIDE 0.9% 1,000 ML IV SCH (11:30)
--- NOTE | 2020-11-27 11:40 | P.GSHP ---
History of Present Illness H&P Date: 11/27/20 Chief Complaint: left flank pain This is a 55 yo male that presents to the ED left-sided flank pain. Of note he presented to the ED on November 18, with similar complaints at that time a CT was obtained which showed a 5 mm stone in the left ureter. Today the pain has recurred in its severe in nature. He had a KUB done which showed the stone has migrated distally to the distal ureter. Of note his creatinine has bumped to 1.69 from a baseline of 1. Denies any dysuria or gross hematuria - Constitutional Constitutional: Denies chills, Denies fever - EENT Ears, nose, mouth and throat: Denies headache, Denies sore throat - Cardiovascular Cardiovascular: Denies chest pain, Denies shortness of breath - Respiratory Respiratory: Denies cough, Denies 7 - Gastrointestinal Gastrointestinal: Reports abdominal pain - Genitourinary (Female) Genitourinary: Reports difficulty voiding, Reports flank pain, Denies dysuria, Denies hematuria - Integumentary Integumentary: Denies pruritus, Denies rash - Neurological Neurological: Denies numbness, Denies weakness - Psychiatric Psychiatric: Denies anxiety, Denies depression Past Medical History Past Medical History: Diabetes Mellitus Additional Past Medical History / Comment(s): kidney stones History of Any Multi-Drug Resistant Organisms: None Reported Past Surgical History: No Surgical Hx Reported Additional Past Surgical History / Comment(s): vasectomy Past Anesthesia/Blood Transfusion Reactions: No Reported Reaction Past Psychological History: No Psychological Hx Reported Smoking Status: Never smoker Past Alcohol Use History: None Reported Past Drug Use History: None Reported - Past Family History Mother Family Medical History: Cancer Medications and Allergies Home Medications Medication Instructions Recorded Confirmed Type metFORMIN HCL [Glucophage] 500 mg PO BID 05/02/17 11/27/20 History Ketorolac [Toradol] 10 mg PO Q8HR #10 tab 11/18/20 11/27/20 Rx Tamsulosin [Flomax] 0.4 mg PO DAILY #7 cap 11/18/20 11/27/20 Rx Allergies Allergy/AdvReac Type Severity Reaction Status Date / Time No Known Allergies Allergy Verified 11/27/20 10:33 Surgical - Exam Vital Signs Temp Pulse Resp BP Pulse Ox 97.9 F 77 18 176/89 97 11/27/20 08:15 11/27/20 08:15 11/27/20 08:15 11/27/20 08:15 11/27/20 08:15 - General well developed, well nourished, no distress, moderate pain - Eyes PERRL, normal ocular movement - ENT normal nares, normal mucosa - Respiratory normal expansion, normal respiratory effort - Abdomen Abdomen: soft, non tender - Psychiatric oriented to time, oriented to person, oriented to place Results - Labs 11/27/20 08:37 11/27/20 08:37 Abnormal Lab Results - Last 24 Hours (Table) 11/27/20 11/27/20 Range/Units 08:37 08:37 Lymphocytes # 0.8 L (1.0-4.8) k/uL BUN 30 H (9-20) mg/dL Creatinine 1.69 H (0.66-1.25) mg/dL Glucose 152 H (74-99) mg/dL Alkaline Phosphatase 141 H (38-126) U/L Diabetes panel 11/27/20 Range/Units 08:37 Sodium 137 (137-145) mmol/L Potassium 4.9 (3.5-5.1) mmol/L Chloride 104 (98-107) mmol/L Carbon Dioxide 26 (22-30) mmol/L BUN 30 H (9-20) mg/dL Creatinine 1.69 H (0.66-1.25) mg/dL Glucose 152 H (74-99) mg/dL Calcium 9.5 (8.4-10.2) mg/dL AST 23 (17-59) U/L ALT 37 (4-49) U/L Alkaline Phosphatase 141 H (38-126) U/L Total Protein 7.2 (6.3-8.2) g/dL Albumin 4.5 (3.5-5.0) g/dL Calcium panel 11/27/20 Range/Units 08:37 Calcium 9.5 (8.4-10.2) mg/dL Albumin 4.5 (3.5-5.0) g/dL Pituitary panel 11/27/20 Range/Units 08:37 Sodium 137 (137-145) mmol/L Potassium 4.9 (3.5-5.1) mmol/L Chloride 104 (98-107) mmol/L Carbon Dioxide 26 (22-30) mmol/L BUN 30 H (9-20) mg/dL Creatinine 1.69 H (0.66-1.25) mg/dL Glucose 152 H (74-99) mg/dL Calcium 9.5 (8.4-10.2) mg/dL Adrenal panel 11/27/20 Range/Units 08:37 Sodium 137 (137-145) mmol/L Potassium 4.9 (3.5-5.1) mmol/L Chloride 104 (98-107) mmol/L Carbon Dioxide 26 (22-30) mmol/L BUN 30 H (9-20) mg/dL Creatinine 1.69 H (0.66-1.25) mg/dL Glucose 152 H (74-99) mg/dL Calcium 9.5 (8.4-10.2) mg/dL Total Bilirubin 0.7 (0.2-1.3) mg/dL AST 23 (17-59) U/L ALT 37 (4-49) U/L Alkaline Phosphatase 141 H (38-126) U/L Total Protein 7.2 (6.3-8.2) g/dL Albumin 4.5 (3.5-5.0) g/dL Assessment and Plan Assessment: This is a 55-year-old male with history of a 5 mm left ureteral stone. He's had 2 ED presentation secondary to pain from his stone. Additionally his creat inine has bumped to 1.69 from baseline of 1. Discussed with him given that his this is a second ED presentation and his MARIA EUGENIA the option of doing a left ureteroscopy. Discussed with him the risk which includes but not limited to bleeding, infection, injury to ureter. Plan: -Will admit to observation -Or for left-sided ureteroscopy, with holmium laser lithotripsy and possible stent placement
[2020-11-27] MEDS ORDERED: fentaNYL (PF) 50 MCG/ML 2 ML AMP ONE (14:28)
[2020-11-27] MEDS ORDERED: MIDAZOLAM 2 MG/2 ML VIAL ONE (14:28)
[2020-11-27] MEDS ORDERED: PROPOFOL 10 MG/ML 20 ML VIAL IV ONE (14:28)
[2020-11-27] MEDS ORDERED: LIDOCAINE 1% INJ 10MG/ML (20 ML MDV) ONE (14:28)
[2020-11-27] MEDS ORDERED: KETOROLAC 15 MG/ML 1 ML VIAL ONE (14:28)
[2020-11-27] MEDS ORDERED: SUCCINYLCHOLINE CHLORIDE 100 MG/5 ML SYR IV ONE (14:28)
[2020-11-27] MEDS ORDERED: IV FLUID CONTINUATION 1,000 ML IV ONE (14:28)
[2020-11-27] MEDS ORDERED: SODIUM CHLORIDE 0.9% 100 ML with ceFAZolin 2,000 MG IV ONE ×2 (14:42)
[2020-11-27] MEDS ORDERED: LACTATED RINGERS 1,000 ML IV SCH (15:15)
--- NOTE | 2020-11-27 15:22 | P.OP ---
Date of Procedure: 11/27/20 Preoperative Diagnosis: Left ureteral calculi Postoperative Diagnosis: same Procedure(s) Performed: Cystoscopy, left ureteroscopy, holmium laser lithotripsy, stone basketing and stent placement Implants: 6-Micronesian by 26 cm stent Anesthesia: CHYNA Surgeon: Shaheed Cutler Estimated Blood Loss (ml): 5 Pathology: other (left ureteral stone) Condition: stable Disposition: PACU Indications for Procedure: This is a 55-year-old male with history of a 5 mm left ureteral stone. He's had 2 ED presentation secondary to pain from his stone. Additionally his creatinine has bumped to 1.69 from baseline of 1. Discussed with him given that his this is a second ED presentation and his MARIA EUGENIA the option of doing a left ureteroscopy. Discussed with him the risk which includes but not limited to bleeding, infection, injury to ureter. He understood all the risk and agreed to proceed with left-sided ureteroscopy, with holmium laser and possible stent placement Operative Findings: Left distal ureteral stone at the UVJ, edema at the UVJ secondary to the stone Description of Procedure: He was brought to the operating room, general anesthesia was induced. He was prepped and draped in sterile fashion and placed in a dorsal lithotomy position. Cystoscopy fitted with a 21-Micronesian sheath was inserted per urethra, cystoscopy was performed which showed wide caliber bulbar strictures, but otherwise a normal cystoscopy. Attention was then carried to the left ureteral orifice, the stone can be seen partially out of the UVJ. At this time the cystoscope was withdrawn and a semirigid ureteroscope was inserted. Using the holmium laser the stone was fragmented into small fragments, sizable fragments were removed using the stone basket. Of note there was edema at the UVJ secondary to the stone. At this time the ureteroscope was advanced all the way up to the UPJ and no stones were visualized. Pullback ureteroscopy was performed showed no injury to the ureter or any sizable fragments. A sensor wire was advanced through the ureteroscope and the ureteroscope was withdrawn with the wire in place. Next ureteral stent was passed over the wire under fluoroscopy. The proximal curl was visualized on fluoroscopy and the distal curl was visualized using the cystoscope. The bladder was emptied at the end of the case, the stones were sent for analysis. The patient tolerated the procedure well was taken to PACU in stable condition
--- NOTE | 2020-11-27 15:27 | P.DS ---
Providers Date of admission: 11/27/20 11:29 Attending physician: Shaheed Cutler MD Primary care physician: Ruel Brambila [facility] Course: This is a 55-year-old male with history of 5 mm left ureteral stone, he was admitted to the hospital secondary to pain and acute kidney injury. He was taken to the OR on November 27 for left-sided ureteroscopy. Please see op note dated 11/27/20 for surgery details. He did well postoperatively and was discharged home on postoperatively . At time of discharge he was tolerating a diet, ambulating, pain was well-controlled Patient Condition at Discharge: Fair Plan - Discharge Summary Discharge Rx Participant: No New Discharge Prescriptions: No Action metFORMIN HCL [Glucophage] 500 mg PO BID Ketorolac [Toradol] 10 mg PO Q8HR #10 tab Tamsulosin [Flomax] 0.4 mg PO DAILY #7 cap Discharge Medication List metFORMIN HCL [Glucophage] 500 mg PO BID 05/02/17 [History] Ketorolac [Toradol] 10 mg PO Q8HR #10 tab 11/18/20 [Rx] Tamsulosin [Flomax] 0.4 mg PO DAILY #7 cap 11/18/20 [Rx] Follow up Appointment(s)/Referral(s): Ruel Brambila DO [Primary Care Provider] - 1-2 days
[2020-11-27 15:30] VITALS: TEMP 98.3
[2020-11-27] MEDS ORDERED: hydrALAZINE HCL 20 MG/ML 1 ML VIAL IVP ONE ×2 (15:37→17:00)
[2020-11-27] MEDS ORDERED: METOPROLOL TARTRATE 5 MG/5 ML VIAL IVP ONE ×2 (16:00→16:17)
[2020-11-27 16:23] LABS: Glucose,Whole Blood 130 mg/dL (75-99)
[2020-11-27] MEDS ORDERED: HYDROmorphone 0.5 MG/0.5 ML SYRINGE IVP ONE ×2 (16:30→16:40)
[2020-11-27] MEDS ORDERED: SODIUM CHLORIDE 0.9% 1,000 ML IV ONE (17:00)
[2020-11-27 18:17] VITALS: BP 158/87; PULSE 78; RESP 16
[2020-11-28] MEDS ORDERED: HYDROmorphone 0.5 MG/0.5 ML SYRINGE IVP PRN (07:00)
--- NOTE | 2020-11-28 07:07 | FL ---
Fluoroscopy HISTORY: Left ureteral calculus 17 seconds fluoroscopy time supplied to the referring clinician. 2 intraoperative C-arm images docum ent the procedure. See dictated report from urology.
== END 2020-11-27 18:18 | disposition home or self-care (01) ==
LOC: EC 08:14 → 6NMEDSUR 11:29
PROVIDERS: ADMIT Urology; ATTEND Urology
DX: N20.2 Calculus of kidney with calculus of ureter (principal); E11.9 Type 2 diabetes mellitus without complications; N17.9 Acute kidney failure, unspecified; N50.819 Testicular pain, unspecified; Z87.442 Personal history of urinary calculi; Z79.84 Long term (current) use of oral hypoglycemic drugs; Z79.899 Other long term (current) drug therapy; Z80.9 Family history of malignant neoplasm, unspecified
CPT/HCPCS: 52356; S2070; 36415; 74018; 80053; 81003; 82365; 83690; 85025; 87635; 96361; 96374; 99284

== ENCOUNTER → 2021-07-19 | Outpatient (CLI) | payer BC ==
[2021-07-19 10:47] LABS: Basophils # (A) 0.06 X 10*3/uL (0.00-0.10); Basophils % (A) 1.2 %; HCT 43.5 % (39.6-50.0); HGB 14.4 g/dL (13.0-17.0); Lymphocytes # (A) 0.88 X 10*3/uL (0.90-5.00); MCH 31.9 pg (27.0-32.0); MCHC 33.1 g/dL (32.0-37.0); MCV 96.5 fL (80.0-97.0); Mean Platelet Volume 12.2 fL (9.5-12.2); Monocytes # (A) 0.47 X 10*3/uL (0.20-1.00); Monocytes % (A) 9.6 %; Neutrophils # (A) 3.38 X 10*3/uL (1.80-7.70); Platelet Count 234 X 10*3/uL (140-440); RBC 4.51 X 10*6/uL (4.40-5.60); RDW 11.9 % (11.5-14.5)
[2021-07-19 11:24] LABS: Chol/HDL Ratio 4.25 Ratio; LDL Cholesterol,Calculated 118.5 mg/dL (0.0-131.0)
[2021-07-19 11:53] LABS: ALT 24 U/L (10-49); AST 18 U/L (14-35); African American GFR (CKD) 92.6 (60.0-200.0); BUN/Creat Ratio 15.96 Ratio (12.00-20.00); Blood Urea Nitrogen 16.6 mg/dL (9.0-27.0); Calcium 9.6 mg/dL (8.7-10.3); Carbon Dioxide 25.2 mmol/L (20.0-27.5); Chloride 102 mmol/L (96-109); Glucose 146 mg/dL (70-110); Non-African American GFR(CKD) 79.9 (60.0-200.0); Potassium 4.8 mmol/L (3.5-5.5); Sodium 139 mmol/L (135-145)
== END | disposition home or self-care (01) ==
LOC: LABWHC1 07-18 07:11
PROVIDERS: ATTEND Family Medicine
DX: N17.9 Acute kidney failure, unspecified (principal); E78.5 Hyperlipidemia, unspecified
CPT/HCPCS: 36415; 80048; 80061; 83036; 84450; 84460; 85025

== ENCOUNTER 2022-09-18 07:31 | Day surgery (SDC) | payer BC ==
[2022-09-13 09:56] VITALS: BMI 28.3
[2022-09-18] MEDS: LACTATED RINGERS 1,000 ML IV SCH ×2 (07:40→08:38)
[2022-09-18 07:50] VITALS: TEMP 97.2
[2022-09-18 07:59] LABS: Glucose,Whole Blood 137 mg/dL (70-110)
[2022-09-18] MEDS ORDERED: PROPOFOL 10 MG/ML 20 ML VIAL IV ONE (08:40)
[2022-09-18] MEDS ORDERED: LIDOCAINE 2% INJ 20 MG/ML (2 ML VIAL) ONE (08:40)
--- NOTE | 2022-09-18 08:43 | P.GSHP ---
History of Present Illness H&P Date: 09/18/22 Chief Complaint: Abdominal pain, screening with history of polyps 56-year-old male here today for upper and lower endoscopy. Patient with upper abdominal pain. Has history of previous adenomatous polyp 2016. Here for follow-up high risk screening colonoscopy. Scheduled for umbilical hernia repair September. Past Medical History Past Medical History: Diabetes Mellitus Additional Past Medical History / Comment(s): hx kidney stones History of Any Multi-Drug Resistant Organisms: None Reported Past Surgical History: No Surgical Hx Reported Additional Past Surgical History / Comment(s): kidney stone removal, Vasectomy, COLONOSCOPY/EGD Past Anesthesia/Blood Transfusion Reactions: No Reported Reaction Smoking Status: Never smoker - Past Family History Mother Family Medical History: Cancer Medications and Allergies Home Medications Medication Instructions Recorded Confirmed Type metFORMIN HCL [Glucophage] 500 mg PO BID 05/02/17 09/18/22 History Allergies Allergy/AdvReac Type Severity Reaction Status Date / Time No Known Allergies Allergy Verified 09/18/22 07:41 Surgical - Exam Vital Signs Temp Pulse Resp BP Pulse Ox 97.2 F L 97 18 171/94 96 09/18/22 07:47 09/18/22 07:47 09/18/22 07:47 09/18/22 07:47 09/18/22 07:47 Physical exam: General: Well-developed, well-nourished HEENT: Normocephalic, sclerae nonicteric Abdomen: Nontender, nondistended Extremities: No edema Neuro: Alert and oriented Results - Labs Abnormal Lab Results - Last 24 Hours (Table) 09/18/22 Range/Units 07:58 POC Glucose (mg/dL) 137 H (70-110) mg/dL Assessment and Plan (1) History of colon polyps Narrative/Plan: Will proceed with upper and lower endoscopy Current Visit: Yes Status: Acute Code(s): Z86.010 - PERSONAL HISTORY OF COLONIC POLYPS SNOMED Code(s): 031270801
--- NOTE | 2022-09-18 09:01 | P.PCN ---
Date of Procedure: 09/18/22 Procedure(s) Performed: PREOPERATIVE DIAGNOSIS: Abdominal pain, colon cancer screening with personal history of polyps POSTOPERATIVE DIAGNOSIS: Gastritis, normal colon PROCEDURE: 1. EGD with biopsy 2. Colonoscopy ANESTHESIA: MAC SURGEON: Jose Elias Newman M.D. SPECIMENS: None ENDOSCOPIC PROCEDURE: The patient was on the endoscopy table in the left decubitus position. The Olympus gastroscope was inserted into the oropharynx and passed under direct visualization to the region of the third portion of the duodenum. From that point the scope was slowly withdrawn inspecting all surfaces carefully. There were no neoplastic inflammatory or polypoid lesions throughout the duodenum. The pylorus was widely patent. The stomach was carefully inspected. There was gastritis present. A biopsy of antrum took place. An additional 5 the body of stomach took place where the mucosal inflammation was somewhat more notable. There were no erosions or ulcerations present. Retroflexion revealed a normal hiatus. The esophagus was then carefully examined. There were no neoplastic inflammatory or polypoid lesions throughout the visualized esophagus. The patient was kept on the endoscopy table in the left decubitus position. The Olympus colonoscope was inserted into the anus and passed under direct visualization to the base of the cecum. The appendiceal orifice was visualized. From that point the scope was slowly withdrawn inspecting all surfaces carefully. There were no neoplastic inflammatory or polypoid lesions throughout the cecum, ascending, transverse, descending, sigmoid and rectum. There was no visible diverticulosis noted. Digital rectal examination was normal. The patient was taken to the recovery room in stable condition per anesthesia guidelines. RECOMMENDATIONS: Resume diet. Await biopsy results. Repeat colonoscopy 5-7 years.
[2022-09-18 09:31] VITALS: BP 148/90; PULSE 72; RESP 16
== END 2022-09-18 09:42 | disposition home or self-care (01) ==
LOC: ORWHC2ENDO 07:31
PROVIDERS: ATTEND Surgery
DX: Z12.11 Encounter for screening for malignant neoplasm of colon (principal); K29.50 Unspecified chronic gastritis without bleeding; E11.9 Type 2 diabetes mellitus without complications; Z79.84 Long term (current) use of oral hypoglycemic drugs; Z87.19 Personal history of other diseases of the digestive system
CPT/HCPCS: 88305; 45378; 43239; J2704; J2001

== ENCOUNTER 2022-10-08 05:40 | Day surgery (SDC) | payer BC ==
[~2022-10-08 05:40] MED LIST: ACETAMINOPHEN TAB 500 MG TAB PO PRN; HEPARIN SODIUM,PORCINE/PF 5,000 UNIT/0.5 ML SYRINGE SQ PRN
[2022-10-08] MEDS ORDERED: DEXAMETHASONE SOD PHOSPHATE 4 MG/ML 1 ML VIAL IV ONE (05:53)
[2022-10-08] MEDS ORDERED: LIDOCAINE 1% (10MG/ML) FOR IV START INTRADERMA PRN (05:53)
[2022-10-08] MEDS ORDERED: ONDANSETRON 4 MG/2 ML VIAL IVP ONE (05:53)
[2022-10-08] MEDS ORDERED: HYDROmorphone 0.5 MG/0.5 ML SYRINGE IVP PRN (05:53)
[2022-10-08] MEDS: LACTATED RINGERS 1,000 ML IV SCH ×3 (06:31→10:28)
[2022-10-08 06:33] LABS: Glucose,Whole Blood 140 mg/dL (70-110)
[2022-10-08 06:40] LABS: Basophils % (A) 0 %; Eosinophils # (A) 0.2 k/uL (0-0.7); Eosinophils % (A) 3 %; HCT 43.1 % (39.0-53.0); Lymphocytes % (A) 19 %; MCH 32.5 pg (25.0-35.0); MCHC 34.9 g/dL (31.0-37.0); MCV 93.2 fL (80.0-100.0); Mean Platelet Volume 9.1; Monocytes # (A) 0.3 k/uL (0-1.0); Monocytes % (A) 6 %; Neutrophils # (A) 3.4 k/uL (1.3-7.7); Neutrophils % (A) 69 %; Platelet Count 200 k/uL (150-450); RBC 4.62 m/uL (4.30-5.90); RDW 12.3 % (11.5-15.5)
[2022-10-08] MEDS ORDERED: LIDOCAINE 4% LTA KIT (4 ML) TOPICAL ONE (06:58)
[2022-10-08] MEDS ORDERED: HYDROmorphone (PF) 1 MG/ML ONE (06:58)
[2022-10-08] MEDS ORDERED: MIDAZOLAM 2 MG/2 ML VIAL ONE (06:58)
[2022-10-08] MEDS ORDERED: fentaNYL (PF) 50 MCG/ML 2 ML AMP ONE (06:58)
[2022-10-08] MEDS ORDERED: SUCCINYLCHOLINE CHLORIDE 200 MG/10 ML VIAL IV ONE (06:58)
[2022-10-08] MEDS ORDERED: KETOROLAC 15 MG/ML 1 ML VIAL ONE (06:58)
[2022-10-08] MEDS ORDERED: LIDOCAINE 2% INJ 20 MG/ML (2 ML VIAL) ONE (06:58)
[2022-10-08] MEDS ORDERED: PROPOFOL 10 MG/ML 20 ML VIAL IV ONE (06:58)
[2022-10-08] MEDS ORDERED: ROCURONIUM 10 MG/ML (5 ML VIAL) IV ONE (06:58)
[2022-10-08 07:00] LABS: African American GFR (CKD) >90 (>60 ml/min/1.73 sqM); Anion Gap 9 mmol/L; Blood Urea Nitrogen 22 mg/dL (9-20); Calcium 9.3 mg/dL (8.4-10.2); Carbon Dioxide 26 mmol/L (22-30); Chloride 103 mmol/L (98-107); Glucose 138 mg/dL (74-99); Non-African American GFR(CKD) >90 (>60 ml/min/1.73 sqM); Potassium 4.5 mmol/L (3.5-5.1); Sodium 138 mmol/L (137-145)
[2022-10-08] MEDS ORDERED: BUPIVACAIN-EPI 0.25%-1:200,000 30 ML VIAL SQ ONE (07:03)
--- NOTE | 2022-10-08 07:07 | P.GSHP ---
History of Present Illness H&P Date: 10/08/22 Chief Complaint: Umbilical hernia 57-year-old male here today for elective repair incarcerated umbilical hernia. Patient has pain there at times. Increasing in size. No nausea or vomiting. No previous surgery there. Past Medical History Past Medical History: Diabetes Mellitus Additional Past Medical History / Comment(s): hx kidney stones History of Any Multi-Drug Resistant Organisms: None Reported Past Surgical History: No Surgical Hx Reported Additional Past Surgical History / Comment(s): kidney stone removal, Vasectomy, COLONOSCOPY/EGD Past Anesthesia/Blood Transfusion Reactions: No Reported Reaction Past Psychological History: No Psychological Hx Reported Smoking Status: Never smoker Past Alcohol Use History: Rare Past Drug Use History: None Reported - Past Family History Mother Family Medical History: Cancer Medications and Allergies Home Medications Medication Instructions Recorded Confirmed Type metFORMIN HCL [Glucophage] 500 mg PO BID 05/02/17 10/04/22 History Allergies Allergy/AdvReac Type Severity Reaction Status Date / Time No Known Allergies Allergy Verified 10/08/22 06:11 Surgical - Exam Vital Signs Temp Pulse Resp BP Pulse Ox 97.3 F L 77 16 172/91 97 10/08/22 06:15 10/08/22 06:15 10/08/22 06:15 10/08/22 06:15 10/08/22 06:15 Physical exam: General: Well-developed, well-nourished HEENT: Normocephalic, sclerae nonicteric Abdomen: Nontender, nondistended, incarcerated umbilical hernia suspect 1.5 cm defect Extremities: No edema Neuro: Alert and oriented Results - Labs 10/08/22 06:28 10/08/22 06:28 Abnormal Lab Results - Last 24 Hours (Table) 10/08/22 10/08/22 Range/Units 06:26 06:28 BUN 22 H (9-20) mg/dL Glucose 138 H (74-99) mg/dL POC Glucose (mg/dL) 140 H (70-110) mg/dL Diabetes panel 10/08/22 Range/Units 06:28 Sodium 138 (137-145) mmol/L Potassium 4.5 (3.5-5.1) mmol/L Chloride 103 (98-107) mmol/L Carbon Dioxide 26 (22-30) mmol/L BUN 22 H (9-20) mg/dL Creatinine 0.72 (0.66-1.25) mg/dL Glucose 138 H (74-99) mg/dL Calcium 9.3 (8.4-10.2) mg/dL Calcium panel 10/08/22 Range/Units 06:28 Calcium 9.3 (8.4-10.2) mg/dL Pituitary panel 10/08/22 Range/Units 06:28 Sodium 138 (137-145) mmol/L Potassium 4.5 (3.5-5.1) mmol/L Chloride 103 (98-107) mmol/L Carbon Dioxide 26 (22-30) mmol/L BUN 22 H (9-20) mg/dL Creatinine 0.72 (0.66-1.25) mg/dL Glucose 138 H (74-99) mg/dL Calcium 9.3 (8.4-10.2) mg/dL Adrenal panel 10/08/22 Range/Units 06:28 Sodium 138 (137-145) mmol/L Potassium 4.5 (3.5-5.1) mmol/L Chloride 103 (98-107) mmol/L Carbon Dioxide 26 (22-30) mmol/L BUN 22 H (9-20) mg/dL Creatinine 0.72 (0.66-1.25) mg/dL Glucose 138 H (74-99) mg/dL Calcium 9.3 (8.4-10.2) mg/dL Assessment and Plan (1) Incarcerated umbilical hernia Narrative/Plan: 57-year-old male with incarcerated umbilical hernia. We'll proceed with open repair incarcerated umbilical hernia with probable mesh. Risks of bleeding, infection, recurrence, bladder and bowel injury, numbness, nerve injury, were discussed with the patient. The patient understands and wishes to proceed. Current Visit: Yes Status: Acute Code(s): K42.0 - UMBILICAL HERNIA WITH OBSTRUCTION, WITHOUT GANGRENE SNOMED Code(s): 571233898
--- NOTE | 2022-10-08 08:21 | P.OP ---
Date of Procedure: 10/08/22 Procedure(s) Performed: PREOPERATIVE DIAGNOSIS: Incarcerated umbilical hernia POSTOPERATIVE DIAGNOSIS: Same PROCEDURE: Open repair incarcerated umbilical hernia with mesh SURGEON: Dr. Newman ANESTHESIA: General OPERATIVE PROCEDURE DETAILS: The patient was placed in the operating table in the supine position. A curvilinear supraumbilical incision was made using the scalpel. The subcutaneous tissues were dissected bluntly and with cautery. The hernia sac was identified. The umbilical attachments to the fascia were divided using electrocautery. The hernia sac was reduced back into the preperitoneal space. The defect in the fascia measured 2.5 x 1.5 cm The fat overlying the fascia was dissected. No additional defects were seen. The preperitoneal space was then dissected using blunt dissection and electrocautery. The 4.3 cm ventral ex mesh was placed beneath the fascia and sutured in place using trans- fascial 0 Ethibond sutures. The defect was closed using interrupted [id number] 0 Ethibond mattress sutures. The subcutaneous tissues were reapproximated using inverted 2-0 & 3-0 Vicryl sutures. The umbilicus was tacked back down to the fascia using a 2-0 Vicryl suture. The skin was closed using 4-0 Monocryl sutures. Skin glue and sterile dressings were then applied. HERNIA CHARACTERISTICS: Length: 2.5 cm Width: 1.5 cm Type: Incarcerated umbilical TYPE OF MESH USED: 4.3 Centimeter ventral ex LOCATION OF MESH: Sub-lay FIXATION: 0 Ethibond PREOPERATIVE DISCUSSION ON SMOKING CESSASTION: Yes PREOPERATIVE DISCUSSION ON MORBID OBESITY: Yes PREOPERATIVE DISCUSSION ON APPROPRIATE USE OF NARCOTIC USE: Yes PREOPERATIVE EDUCATION: Multi Modal, Smoking Cessation and Weight Loss with BMI over 35. DISPOSITION: Stable to recovery room
[2022-10-08 08:28] VITALS: TEMP 96.8
[2022-10-08 08:30] VITALS: RESP 16
[2022-10-08] MEDS ORDERED: ACETAMINOPHEN TAB 325 MG TAB PO SCH (08:30)
[2022-10-08 08:46] LABS: Glucose,Whole Blood 154 mg/dL (70-110)
[2022-10-08 09:35] VITALS: BP 134/80; PULSE 60
[2022-10-08] MEDS ORDERED: IBUPROFEN 600 MG TAB PO SCH (11:30)
== END 2022-10-08 10:42 | disposition home or self-care (01) ==
LOC: OR 05:40
PROVIDERS: ATTEND Surgery
DX: K42.0 Umbilical hernia with obstruction, without gangrene (principal); E11.9 Type 2 diabetes mellitus without complications; M16.9 Osteoarthritis of hip, unspecified; M54.16 Radiculopathy, lumbar region; N20.0 Calculus of kidney; Z83.3 Family history of diabetes mellitus; Z82.49 Family history of ischemic heart disease and other diseases of the circulatory system; Z80.8 Family history of malignant neoplasm of other organs or systems; Z79.84 Long term (current) use of oral hypoglycemic drugs
CPT/HCPCS: 80048; 85025; 49592; C1781; J2250; J0330; J1100; J0690; J2405; J3010; J1170; J1885; J2704; J1644; J2001

== ENCOUNTER → 2024-07-07 | Outpatient (CLI) | payer BC ==
--- NOTE | 2024-07-14 06:28 | P.PCN ---
Date of Procedure: 07/07/24 Operative Findings: Home sleep study testing Date of service is 07/07/2024 Pertinent history This is a 58-year-old male patient referred to me for sleep apnea evaluation. The patient has loud snoring, witnessed apneas as reported by his who is an endoscopy nurse. At the same time, the patient reported sleep fragmentation, frequent nocturnal arousals and excessive daytime fatigue and sleepiness. The patient has cut down his alcohol drinking and he has other comorbidities including diabetes mellitus type 2, hyperlipidemia and BPH. Pertinent physical findings The weight is 219 pounds with a body mass index of 29.6 Technical description The [employer] system was used to complete his home sleep study. This is a type III home sleep study evaluation. The total recording duration was 7 hours and 40 minutes. The study started at 9:35 PM and ended at 5:16 AM. There was a total of 7 hours and 28 minutes of flow monitoring and 7 hours and 30 minutes of oxygen saturation monitoring. Results The respiratory analysis showed a total of 30 obstructive apneas and 39 obstructive hypopneas and the resulting AHI was 9.2, slightly worse in a supine body position. Oxygenation analysis There was a baseline pulse ox of 97% on room air, average pulse ox during sleep was 94% with a minimum pulse ox of 78% during sleep. The patient spent approximately 7 minutes of sleep time below pulse ox of 89% Cardiac summary Average heart rate was 75 with a minimum heart rate of 61 and a maximum heart rate of 113 Assessment Obstructive sleep apnea, mild with an AHI of 9.2. No significant nocturnal oxygen saturations Loud snoring and sleep fragmentation Diabetes mellitus type 2 Hyperlipidemia BPH Plan Will discuss findings with the patient and family Will offer CPAP therapy if the patient is interested and willing to undertake the treatment. I think is reasonable to consider an APAP machine to optimize his SAYDA. Also, alternatives can be considered including an oral appliance. At the same time, the patient is to work on optimizing his sleep hygiene measures and losing weight. Will have a discussion with the patient and family Will make further recommendations accordingly.
== END ==
LOC: 3 N SLEEP 16:03
PROVIDERS: ATTEND Internal Medicine Critical Care Medicine
DX: G47.33 Obstructive sleep apnea (adult) (pediatric) (principal); E11.9 Type 2 diabetes mellitus without complications; E78.5 Hyperlipidemia, unspecified; N40.0 Benign prostatic hyperplasia without lower urinary tract symptoms; Z79.84 Long term (current) use of oral hypoglycemic drugs

== ENCOUNTER → 2024-10-19 | Outpatient (CLI) | payer BC ==
--- NOTE | 2024-10-19 07:53 | US ---
EXAMINATION TYPE: US liver DATE OF EXAM: 10/19/2024 COMPARISON: CT abd pelvis 11/18/20 / US 01/18/20 CLINICAL INDICATION: Male, 59 years old with history of E11.65 TYPE 2 DIABETES MELLITUS WITH HYPERGLY CEMIA; abn blood work TECHNIQUE: Grayscale and color Doppler imaging of the right upper quadrant was performed. 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 Liver demonstrates coarsened echotexture without fo anne marie lesion or cirrhotic pathology. Gallbladder demonstrates no stones, wall thickening or surrounding fluid. Negative sonographic Kate's sign. Common bile duct is within normal limits. Right kidney de monstrates no solid mass, hydronephrosis or nephrolithiasis. There is a simple appearing cyst identif ied within the right kidney measuring 3.5 cm. IMPRESSION: 1. No ultrasound evidence for acute process. 2. Simple appearing right renal cyst redemonstrated. [facility], , 10/19/2024 7:50 AM
== END | disposition home or self-care (01) ==
LOC: RADUSWWP 06:54
PROVIDERS: ATTEND Family Medicine
DX: N28.1 Cyst of kidney, acquired (principal); E11.65 Type 2 diabetes mellitus with hyperglycemia
CPT/HCPCS: 76705